=== PATIENT | male | born 2000 | race Caucasian/White ===

== ENCOUNTER 2020-11-06 16:40 | Emergency (ER) | payer OTHER ==
--- NOTE | 2020-11-06 17:08 | ER Document Report ---
ED Medical Screen (RME) - General Chief Complaint: Abdominal Pain Stated Complaint: LEFT SIDE FLANK PAIN Time Seen by Provider: 11/06/20 16:58 Mode of Arrival: Ambulatory Information source: Patient - HPI Patient complains to provider of: Left flank pain Notes: 11/06/20 17:07 Patient with complaints of left-sided abdominal/flank pain. Pain started a few days ago. Pain has been constant. Pain is worse when he takes a deep breath. He states he has not had a normal bowel movement in the last 4 days. No fevers. He denies any nausea, vomiting, diarrhea. No dysuria or hematuria. No history of kidney stones. No chest pain or shortness of breath. Exam: No distress, nontoxic appearing. Lungs clear and equal throughout. Heart sounds normal. No focal abdominal tenderness on limited triage abdominal exam. An initial examination was made on the patient as part of the triage process, and it was determined a more comprehensive evaluation was necessary. Initial orders were placed and patient was transferred to another provider in the ED who assumed care and finished evaluation and plan. - Related Data Allergies/Adverse Reactions: No Known Allergies Allergy (Unverified 11/06/20 16:59) Past Medical History - Social History Chew tobacco use (# tins/day): No Frequency of alcohol use: Occasional Drug Abuse: None Physical Exam - Vital signs Vitals: Temp Pulse Resp BP Pulse Ox 99 F 82 18 133/69 H 98 11/06/20 16:59 11/06/20 16:59 11/06/20 16:59 11/06/20 16:59 11/06/20 16:59 Course - Vital Signs Vital signs: Temp Pulse Resp BP Pulse Ox 99 F 82 18 133/69 H 98 11/06/20 16:59 11/06/20 16:59 11/06/20 16:59 11/06/20 16:59 11/06/20 16:59
[2020-11-06 17:52] LABS: ABSOLUTE BASOPHILS # (AUTO) 0.1 10^3/uL (0.0-0.2); ABSOLUTE EOSINOPHILS # (AUTO) 0.8 10^3/uL (0.0-0.6); ABSOLUTE LYMPHOCYTES (AUTO) 2.3 10^3/uL (0.5-4.7); ABSOLUTE NEUT (AUTO) 6.7 10^3/uL (1.7-8.2); EOSINOPHILS % (AUTO) 6.9 % (0-6); HEMATOCRIT 49.8 % (37.9-51.0); LYMPHOCYTES % (AUTO) 21.5 % (13-45); MEAN CORPUSCULAR HEMOGLOBIN 29.2 pg (27.0-33.4); MEAN CORPUSCULAR HGB CONC 34.2 g/dL (32.0-36.0); MEAN CORPUSCULAR VOLUME 85 fl (80-97); MONOCYTES % (AUTO) 9.1 % (3-13); PLATELET COUNT 302 10^3/uL (150-450); RED BLOOD COUNT 5.83 10^6/uL (4.35-5.55); RED CELL DISTRIBUTION WIDTH 13.5 % (11.5-14.0); SEGMENTED NEUTROPHILS % (AUTO) 61.5 % (42-78); TOTAL CELLS COUNTED % (AUTO) 100 %; WHITE BLOOD COUNT 10.9 10^3/uL (4.0-10.5)
[2020-11-06 18:03] LABS: ALBUMIN 4.2 g/dL (3.5-5.0); ALKALINE PHOSPHATASE 67 U/L (38-126); ANION GAP 6 (5-19); ASPARTATE AMINO TRANSFERASE 34 U/L (17-59); BILIRUBIN,DIRECT 0.2 mg/dL (0.0-0.4); BILIRUBIN,TOTAL 0.3 mg/dL (0.2-1.3); BLOOD UREA NITROGEN 12 mg/dL (7-20); CALCIUM 9.8 mg/dL (8.4-10.2); CARBON DIOXIDE 32 mmol/L (22-30); CHLORIDE 103 mmol/L (98-107); GLUCOSE 99 mg/dL (75-110); POTASSIUM 4.4 mmol/L (3.6-5.0); TOTAL PROTEIN 7.7 g/dL (6.3-8.2)
--- NOTE | 2020-11-06 18:17 | RADIOLOGY REPORT (SQ) ---
EXAM DESCRIPTION: CT ABD/PELVIS NO ORAL OR IV IMAGES COMPLETED DATE/TIME: 11/06/2020 5:51 pm REASON FOR STUDY: left flank pain COMPARISON: None. TECHNIQUE: CT scan of the abdomen and pelvis performed without intravenous or oral contrast. Images reviewed with lung, soft tissue, and bone windows. Reconstructed coronal and sagittal MPR images revi ewed. All images stored on PACS. All CT scanners at this facility use dose modulation, iterative reconstruction, and/or weight based d osing when appropriate to reduce radiation dose to as low as reasonably achievable (ALARA). [facility]: Dose Right [facility]: CareDose [facility]: Dose Right [facility]: Teradose 4D [facility]: Smart JumpTime RADIATION DOSE: CT Rad equipment meets quality standard of care and radiation dose reduction techniq ues were employed. CTDIvol: 11.7 mGy. DLP: 665 mGy-cm.mGy. LIMITATIONS: None. FINDINGS: LOWER CHEST: No significant findings. No nodules or infiltrates. NON-CONTRASTED LIVER, SPLEEN, ADRENALS: Evaluation limited by lack of IV contrast. No identified sign ificant masses. PANCREAS: No masses. No peripancreatic inflammatory changes. GALLBLADDER: No identified stones by CT criteria. No inflammatory changes to suggest cholecystitis. RIGHT KIDNEY AND URETER: No suspicious masses. Assessment limited by lack of IV contrast. No signif icant calcifications. No hydronephrosis or hydroureter. LEFT KIDNEY AND URETER: No suspicious masses. Assessment limited by lack of IV contrast. No signifi cant calcifications. No hydronephrosis or hydroureter. AORTA AND RETROPERITONEUM: No aneurysm. No retroperitoneal masses or adenopathy. BOWEL AND PERITONEAL CAVITY: No obvious masses or inflammatory changes. No free fluid. APPENDIX: Normal. PELVIS, BLADDER, AND ABDOMINAL WALL:The urinary bladder is not well filled but no obvious bladder mas s. No bladder calculus. BONES: No significant findings. OTHER: No other significant finding. IMPRESSION: NO SIGNIFICANT OR ACUTE PROCESS IN THE ABDOMEN OR PELVIS. COMMENT: Quality ID # [id number]: Final reports with documentation of one or more dose reduction techniques (e.g., Automated exposure control, adjustment of the mA and/or kV according to patient size, use of iterative reconstruction technique) TECHNICAL DOCUMENTATION: JOB ID: [id number] 2010 [employer]- All Rights Reserved Reading location - IP/workstation name: [email or web address]
[2020-11-06 18:58] LABS: AMORPHOUS SEDIMENT,URINE TRACE /HPF; APPEARANCE,URINE CLOUDY; BILIRUBIN,URINE NEGATIVE (NEGATIVE); COLOR,URINE YELLOW; GLUCOSE, URINE NEGATIVE (NEGATIVE); KETONES,URINE NEGATIVE (NEGATIVE); LEUKOCYTE ESTERASE,URINE NEGATIVE (NEGATIVE); NITRITE,URINE NEGATIVE (NEGATIVE); PROTEIN,URINE NEGATIVE (NEGATIVE); URINE SPECIFIC GRAVITY 1.015; UROBILINOGEN,URINE NEGATIVE mg/dL (<2.0)
--- NOTE | 2020-11-06 20:42 | ER Document Report ---
ED GI/ - General Chief Complaint: Abdominal Pain Stated Complaint: LEFT SIDE FLANK PAIN Time Seen by Provider: 11/06/20 16:58 Mode of Arrival: Ambulatory Information source: Patient - HPI Patient complains to provider of: Abdominal pain Notes: 11/06/20 20:41 Patient here with complaints of left upper quadrant abdominal pain that started 2 days ago. The pain is pleuritic in nature. He denies any nausea, vomiting, diarrhea. No dysuria or hematuria. Is worse with taking a deep breath, nothing seems to make it better. He denies any rash or injury. He denies any chest pain or shortness of breath. No leg pain or leg swelling. He does report dr cunningham here from [place] over the last few days. He denies any history of cancer, or history of DVT or PE. No rash. No severe headache or blurred vision. No numbness, tingling, weakness. No other complaints. - Related Data Allergies/Adverse Reactions: No Known Allergies Allergy (Unverified 11/06/20 16:59) Past Medical History - General Information source: Patient - Social History Smoking Status: Current Every Day Smoker Chew tobacco use (# tins/day): No Frequency of alcohol use: Occasional Drug Abuse: None Family History: Reviewed & Not Pertinent Review of Systems - Review of Systems -: Yes All other systems reviewed and negative Physical Exam - Vital signs Vitals: Temp Pulse Resp BP Pulse Ox 99 F 82 18 133/69 H 98 11/06/20 16:59 11/06/20 16:59 11/06/20 16:59 11/06/20 16:59 11/06/20 16:59 - Notes Notes: GENERAL: alert, cooperative, nontoxic, no distress. HEAD: normocephalic, atraumatic EYES: conjunctiva pink without discharge, no external redness or swelling. EARS: no external swelling, no external redness NOSE: atraumatic, no external swelling MOUTH/THROAT: mucous membranes moist and pink, posterior pharynx without erythem a, swelling, exudate. No trismus or drooling. NECK: soft, supple, full range of motion, no meningismus. CHEST: no distress, lungs clear and equal throughout. No wheezing, rales, rhonchi. CARDIAC: regular rate and rhythm, no murmur ABDOMEN: Soft, nontender to palpation. No rebound tenderness or guarding. No mass. Bowel sounds present. BACK: full range of motion EXTREMITIES: full range of motion of all extremities. No redness, no swelling. NEURO: alert and oriented x 3, no focal deficits, full range of motion of all extremities. PYSCH: appropriate mood, affect. Patient is cooperative. SKIN: pink, warm, dry, no rash. Course - Re-evaluation Re-evalutation: 11/06/20 22:16 Patient resting comfortably just time. I gone results with the patient. Questions answered. Was discharged home. 11/06/20 22:18 Patient is nontoxic-appearing with stable vitals. Here with complaints of some left upper abdominal pain started a few days ago. Pain is worse with taking a deep breath. Patient denies any injury. He denies any nausea, vomiting, diarrhea. He does report recently driving from [place] here. No leg pain or leg swelling. He has no history of DVT or PE. He denies any chest pain or shortness of breath. Symptoms are atypical for ACS. D-dimer is 0.31 and negative. Chest x-ray shows no acute abnormality per the radiologist. Blood work shows a white count of 10.9. Chemistries unremarkable for any significant abnormalities. ALT minimally elevated at 62 which is nonspecific. Lipase is normal. Urinalysis with no blood or signs of infection. Chest x-ray shows no acute abnormality. CT of the abdomen pelvis shows no acute abnormality. Overall the patient looks well. I cannot exactly explain the patient's pain although not find any significant cause for it. At this point believe the patient can be discharged home with instructions to follow-up with his primary care doctor at next available appointment. Follow-up sooner for worsening pain, high fever, persistent vomiting, or for any further concerns. The patient's emergency department workup and current diagnosis were explained to the patient and or family. Follow-up instructions were provided. Medications if prescribed were discussed. Instructions for when to return to the emergency department including specific worrisome symptoms were discussed with the patient and/or family. - Vital Signs Vital signs: Temp Pulse Resp BP Pulse Ox 99 F 82 18 133/69 H 98 11/06/20 16:59 11/06/20 16:59 11/06/20 16:59 11/06/20 16:59 11/06/20 16:59 - Laboratory Results Result Diagrams: 11/06/20 17:22 11/06/20 17:22 Laboratory Results Interpreted: 11/06/20 11/06/20 17:22 17:22 WBC 10.9 H RBC 5.83 H Eos % (Auto) 6.9 H Absolute Eos (auto) 0.8 H Carbon Dioxide 32 H ALT 62 H Critical Laboratory Results Reviewed: No Critical Results - Radiology Results Critical Radiology Results Reviewed: No Critical Results Discharge - Discharge Clinical Impression: LUQ pain Condition: Stable Disposition: HOME, SELF-CARE Instructions: Abdominal Pain ([facility]) Additional Instructions: Take medications as prescribed. Drink plenty fluids. Follow-up with your doctor at the next available appointment. Follow-up sooner for worsening pain, high fever, persistent vomiting, or for any further concerns. Prescriptions: Diclofenac Sodium [Voltaren 50 Mg Tablet.] 50 mg PO BID #20 tablet. Referrals: [facility] [Provider Group] - Follow up as needed
--- NOTE | 2020-11-06 22:05 | RADIOLOGY REPORT (SQ) ---
EXAM DESCRIPTION: XR CHEST 2 VIEWS COMPLETED DATE/TME: 11/06/2020 21:28 CLINICAL HISTORY: 20 years, Male, left lower rib pain EXAM DESCRIPTION: CHEST 2 VIEWS CLINICAL HISTORY: left lower rib pain COMPARISON: None. FINDINGS: Two views of the chest are submitted. Cardiac silhouette appears normal. No focal parenchymal or pleural disease. There is no significant pulmonary vascular engorgement. IMPRESSION: No evidence of acute cardiopulmonary disease.
[2020-11-06 22:29] VITALS: BP 120/74
== END 2020-11-06 22:28 | disposition home or self-care (01) ==
LOC: ER 16:40
DX: R10.12 Left upper quadrant pain (principal); F17.200 Nicotine dependence, unspecified, uncomplicated
CPT/HCPCS: 36415; 71046; 74176; 80053; 81001; 83690; 85025; 85379; 99285